=== PATIENT | female | born 1975 | race Caucasian/White ===

== ENCOUNTER 2021-10-26 22:21 | Emergency (ER) | payer OTHER ==
[~2021-10-26] VITALS: Ht 160 cm; Wt 121.1 kg
[2021-10-26 22:32] VITALS: BP_SYST 128
--- NOTE | 2021-10-27 00:03 | NUR ---
45 YR OLD FEMALE AOX4, AMBULATORY WITH COMPLAINT OF HEART PALPITATIONS FOR MORE THAN TWO DAYS WITH RIGHT NECK PAIN 6/. PT REPORTS HISTORY OF HEART MURMER, HYPERTENSION, HYPOTHYROID, AND FIBROMYALGIA. PT DENIES CHEST PAIN OR SOB. PT IS ON [employer] AND IN A GOWN. EKG COMPLETE. PENDING MD VASQUES.
--- NOTE | 2021-10-27 01:15 | NUR ---
PT IN BED RESTING, NO ACUTE DISTRESS. PT IN POSITION OF COMFORT. WILL MONITOR NEEDED
[2021-10-27 01:25] VITALS: BP_SYST 121
[2021-10-27 01:51] LABS: HEMOGLOBIN 8.1 g/dL (12.0-16.0); MEAN CORPUSCULAR HEMOGLOBIN 20 pg (27-31)
[2021-10-27 01:57] LABS: BASOPHILS % (AUTO) 1.3 % (0.0-2.0); EOSINOPHILS # (AUTO) 0.3 K/uL (0.0-0.4); EOSINOPHILS % (AUTO) 4.8 % (0.0-4.0); HEMATOCRIT 26.3 % (36-48); LYMPHOCYTES % (AUTO) 29.8 % (20.5-51.5); MEAN CORPUSCULAR HGB CONC 31 % (32-36); MEAN CORPUSCULAR VOLUME 64 fL (79.0-98.0); MONOCYTES # (AUTO) 0.8 K/uL (0.0-1.0); MONOCYTES % (AUTO) 11.9 % (1.7-9.3); NEUTROPHILS # (AUTO) 3.6 K/uL (1.8-7.7); NEUTROPHILS % (AUTO) 52.2 % (40.0-70.0); PLATELET COUNT (AUTO) 359 K/uL (130-430); RED CELL DISTRIBUTION WIDTH 19.1 % (9.0-15.0); WHITE BLOOD COUNT (AUTO) 6.9 K/uL (4.8-10.8)
[2021-10-27] MEDS ORDERED: KETOROLAC TROMETHAMINE 60 MG/2 ML VIAL IM ONE (02:15)
[2021-10-27 02:21] LABS: CALCIUM 8.6 mg/dL (8.4-11.0); CREATININE 0.49 mg/dL (0.55-1.30); POTASSIUM 3.7 mmol/L (3.5-5.1)
[2021-10-27 02:32] LABS: BASOPHILS # (AUTO) 0.1 K/uL (0.0-0.2)
[2021-10-27 02:37] LABS: ALBUMIN 3.1 g/dL (3.4-4.8); THYROID STIMULATING HORMONE 0.57 uIu/mL (0.36-3.74); TOTAL BILIRUBIN 0.3 mg/dL (0.0-1.0)
--- NOTE | 2021-10-27 03:03 | NUR ---
MD AT THE BEDSIDE FOR FOLLOW UP EVALUATION, PENDING DISCHARGE
--- NOTE | 2021-10-27 03:58 | NUR ---
PT PROVIDED WITH DISCHARGE INSTRUCTIONS, AND ENCOURAGED TO TAKE IRON PILLS DAILY PER MD. PT VERBALIZED UNDERSTANDING. PT DISCHARGED WITH ALL BELONGINGS, WITH STEADY GAIT IN STABLE CONDITION.
== END 2021-10-27 04:03 | disposition home or self-care (01) ==
LOC: SED 22:21
DX: R00.2 Palpitations (principal); D53.9 Nutritional anemia, unspecified; M54.2 Cervicalgia
CPT/HCPCS: 36415; 71045; 80053; 83880; 84443; 84484; 85025; 93005; 96372; 99285; J1885

== ENCOUNTER 2021-12-30 18:41 | Emergency (ER) | payer OTHER ==
[~2021-12-30] VITALS: Ht 160 cm; Wt 119.7 kg
[2021-12-30 18:56] VITALS: BP_SYST 150
[2021-12-30 19:03] VITALS: BP_SYST 150
[2021-12-30 19:34] LABS: BASOPHILS # (AUTO) 0.2 K/uL (0.0-0.2); BASOPHILS % (AUTO) 1.9 % (0.0-2.0); EOSINOPHILS # (AUTO) 0.4 K/uL (0.0-0.4); EOSINOPHILS % (AUTO) 4.3 % (0.0-4.0); HEMATOCRIT 29.9 % (36-48); HEMOGLOBIN 9.6 g/dL (12.0-16.0); LYMPHOCYTES # (AUTO) 1.8 K/uL (1.0-5.5); LYMPHOCYTES % (AUTO) 21.3 % (20.5-51.5); MEAN CORPUSCULAR HEMOGLOBIN 21 pg (27-31); MEAN CORPUSCULAR HGB CONC 32 % (32-36); MEAN CORPUSCULAR VOLUME 66 fL (79.0-98.0); MONOCYTES # (AUTO) 0.5 K/uL (0.0-1.0); MONOCYTES % (AUTO) 5.9 % (1.7-9.3); NEUTROPHILS # (AUTO) 5.5 K/uL (1.8-7.7); NEUTROPHILS % (AUTO) 66.6 % (40.0-70.0); PLATELET COUNT (AUTO) 463 K/uL (130-430); RED BLOOD CELL COUNT(AUTO) 4.56 MIL/uL (4.2-6.2); RED CELL DISTRIBUTION WIDTH 19.1 % (9.0-15.0); WHITE BLOOD COUNT (AUTO) 8.3 K/uL (4.8-10.8)
[2021-12-30 19:44] LABS: CALCIUM 7.6 mg/dL (8.4-11.0); CREATININE 0.84 mg/dL (0.55-1.30); POTASSIUM 3.5 mmol/L (3.5-5.1)
[2021-12-30 19:59] LABS: ALBUMIN 3.1 g/dL (3.4-4.8); FREE T4 (FREE THYROXINE) 1.1 ng/dl (0.8-1.5); THYROID STIMULATING HORMONE 2.61 uIu/mL (0.36-3.74); TOTAL BILIRUBIN 0.6 mg/dL (0.0-1.0)
[2021-12-30] MEDS ORDERED: IBUP-1969 PO (20:22)
== END 2021-12-30 20:39 | disposition home or self-care (01) ==
LOC: SED 18:41
DX: D64.9 Anemia, unspecified (principal); R51.9 Headache, unspecified; I10 Essential (primary) hypertension
CPT/HCPCS: 36415; 70450-TC; 76376; 80053; 81002; 81025; 84439; 84443; 85025; 93005; 99285

== ENCOUNTER 2022-01-16 12:00 | Emergency (ER) | payer OTHER ==
[~2022-01-16] VITALS: Ht 160 cm; Wt 121.1 kg
[~2022-01-16 12:00] MED LIST: IBUP-1969 PO
[2022-01-16 12:41] VITALS: BP_SYST 121
--- NOTE | 2022-01-16 12:41 | NUR ---
Pt triaged and placed in waiting room pending bed availability.
--- NOTE | 2022-01-16 12:45 | NUR ---
Pt alert and oriented upon face to face assessment. Pt here from home reporting 9/10 epigastric pain and N/V since this morning. Reports eating greasy food prior to pain starting. Pending MD castillo.
--- NOTE | 2022-01-16 13:07 | NUR ---
ER Dr Thornton placed orders for patient
--- NOTE | 2022-01-16 13:15 | NUR ---
PT REFUSED ALL MEDICATIONS. PT STATED SHE FEELS BETTER AND DOES NOT NEED MEDICINE.
[2022-01-16 13:45] LABS: BASOPHILS # (AUTO) 0.1 K/uL (0.0-0.2); BASOPHILS % (AUTO) 1.3 % (0.0-2.0); EOSINOPHILS # (AUTO) 0.1 K/uL (0.0-0.4); EOSINOPHILS % (AUTO) 1.9 % (0.0-4.0); HEMATOCRIT 30.4 % (36-48); HEMOGLOBIN 9.4 g/dL (12.0-16.0); LYMPHOCYTES # (AUTO) 0.9 K/uL (1.0-5.5); LYMPHOCYTES % (AUTO) 11.7 % (20.5-51.5); MEAN CORPUSCULAR HEMOGLOBIN 20 pg (27-31); MEAN CORPUSCULAR HGB CONC 31 % (32-36); MEAN CORPUSCULAR VOLUME 66 fL (79.0-98.0); MONOCYTES # (AUTO) 0.5 K/uL (0.0-1.0); NEUTROPHILS # (AUTO) 5.7 K/uL (1.8-7.7); NEUTROPHILS % (AUTO) 78.1 % (40.0-70.0); PLATELET COUNT (AUTO) 385 K/uL (130-430); RED BLOOD CELL COUNT(AUTO) 4.62 MIL/uL (4.2-6.2); RED CELL DISTRIBUTION WIDTH 19.3 % (9.0-15.0); WHITE BLOOD COUNT (AUTO) 7.3 K/uL (4.8-10.8)
[2022-01-16 13:50] LABS: CALCIUM 7.8 mg/dL (8.4-11.0); CREATININE 0.59 mg/dL (0.55-1.30); POTASSIUM 3.9 mmol/L (3.5-5.1)
[2022-01-16 13:54] LABS: ALBUMIN 3.3 g/dL (3.4-4.8); TOTAL BILIRUBIN 0.8 mg/dL (0.0-1.0)
--- NOTE | 2022-01-16 14:45 | NUR ---
Patient to ER bed 3 for evaluation. Side rails up. Report given to Gareth PALOMARES.
[2022-01-16] MEDS ORDERED: MORPHINE 4 MG INJ. 4 MG/ML VIAL IVP ONE (15:00)
[2022-01-16] MEDS ORDERED: NACL 0.9% 1,000 ML IV ONE (15:00)
[2022-01-16] MEDS ORDERED: ONDANSETRON HCL 4 MG/2 ML VIAL IVP ONE (15:00)
[2022-01-16 15:21] LABS: BASOPHILS # (AUTO) 0.2 K/uL (0.0-0.2); BASOPHILS % (AUTO) 2.2 % (0.0-2.0); EOSINOPHILS # (AUTO) 0.1 K/uL (0.0-0.4); EOSINOPHILS % (AUTO) 0.8 % (0.0-4.0); HEMATOCRIT 30.2 % (36-48); HEMOGLOBIN 9.4 g/dL (12.0-16.0); LYMPHOCYTES # (AUTO) 0.9 K/uL (1.0-5.5); LYMPHOCYTES % (AUTO) 12.4 % (20.5-51.5); MEAN CORPUSCULAR HEMOGLOBIN 21 pg (27-31); MEAN CORPUSCULAR HGB CONC 31 % (32-36); MEAN CORPUSCULAR VOLUME 66 fL (79.0-98.0); MONOCYTES # (AUTO) 0.5 K/uL (0.0-1.0); MONOCYTES % (AUTO) 6.7 % (1.7-9.3); NEUTROPHILS # (AUTO) 5.4 K/uL (1.8-7.7); NEUTROPHILS % (AUTO) 77.9 % (40.0-70.0); PLATELET COUNT (AUTO) 358 K/uL (130-430); RED BLOOD CELL COUNT(AUTO) 4.58 MIL/uL (4.2-6.2); RED CELL DISTRIBUTION WIDTH 19.5 % (9.0-15.0)
[2022-01-16] MEDS ORDERED: ONDA-8 TL (16:23)
[2022-01-16] MEDS ORDERED: ACET-2634 PO (16:24)
[2022-01-16] MEDS ORDERED: HYDR-3917 PO (16:24)
--- NOTE | 2022-01-16 17:02 | NUR ---
Patient given written and verbal discharge instructions and verbalizes understanding. ER MD discussed with patient the results and treatment provided. Patient in stable condition. ID arm band removed. Patient educated on pain management and to follow up with PMD. Pain Scale []. Opportunity for questions provided and answered. Medication side effect fact sheet provided.
[2022-01-16 17:03] VITALS: BP_SYST 121
== END 2022-01-16 17:03 | disposition home or self-care (01) ==
LOC: SED 12:00
DX: K80.20 Calculus of gallbladder without cholecystitis without obstruction (principal); R10.12 Left upper quadrant pain; I10 Essential (primary) hypertension
CPT/HCPCS: 36415; 76376; 80053; 81025; 83690; 85025; 99284

== ENCOUNTER 2023-05-17 23:52 | Emergency (ER) | payer BC, OTHER ==
[~2023-05-17] VITALS: Ht 160 cm; Wt 121.1 kg
[~2023-05-17 23:52] MED LIST changes: +ACET-2634 PO; +HYDR-3917 PO; +ONDA-8 TL
[2023-05-18 00:07] VITALS: BP_SYST 154; PULSE 71; RESP 22; TEMP 97; O2SAT 100
[2023-05-18] MEDS: KETOROLAC TROMETHAMINE 60 MG/2 ML VIAL IM ONE (01:14)
[2023-05-18] MEDS ORDERED: NAPR-690 PO (02:11)
[2023-05-18 02:15] VITALS: BP_SYST 142; PULSE 64; RESP 18; TEMP 97.7; O2SAT 96
== END 2023-05-18 02:15 | disposition home or self-care (01) ==
LOC: SED 23:52
DX: S13.4XXA Sprain of ligaments of cervical spine, initial encounter (principal); I10 Essential (primary) hypertension; Z79.899 Other long term (current) drug therapy; X58.XXXA Exposure to other specified factors, initial encounter; Y93.89 Activity, other specified; Y92.89 Other specified places as the place of occurrence of the external cause; Y99.8 Other external cause status
CPT/HCPCS: 99283; 81025; 93005; 96372; J1885